=== PATIENT | female | born 1940 | race Caucasian/White ===

== ENCOUNTER 2021-05-05 15:22 | Emergency (ER) | payer MEDICARE, OTHER ==
[~2021-05-05] VITALS: Ht 167.6 cm; Wt 85.3 kg
--- NOTE | 2021-05-05 15:40 | NUR ---
To ER bed 10, , from [facility], had near syncopal episode, bs 121, BP 110/53, denies pain or headache, aaox3, breathing even and non labored, connected to monitor
--- NOTE | 2021-05-05 15:50 | NUR ---
DR ALFORD AT BEDSIDE
[2021-05-05] MEDS ORDERED: ONDANSETRON HCL/PF 4 MG/2 ML VIAL ONE (15:58)
[2021-05-05] MEDS ORDERED: IV NS 0.9% 1,000 ML IV ONE (16:00)
[2021-05-05] MEDS ORDERED: ONDANSETRON HCL/PF 4 MG/2 ML VIAL IV ONE (16:00)
--- NOTE | 2021-05-05 16:04 | NUR ---
ACTIVITIES AIDE AT BEDSIDE
[2021-05-05 16:27] LABS: BASOPHILS % (AUTO) 0.4 % (0.0-2.0); EOSINOPHILS % (AUTO) 0.4 % (0.0-6.0); HEMATOCRIT 37 % (33-45); HEMOGLOBIN 12.3 g/dL (11.5-14.8); LYMPHOCYTES # (AUTO) 1.8 K/uL (0.8-4.8); LYMPHOCYTES % (AUTO) 23.1 % (20.0-44.0); MEAN CORPUSCULAR HGB CONC 33 g/dl (31.0-36.0); MEAN CORPUSCULAR VOLUME 88 fL (82-100); MONOCYTES # (AUTO) 0.6 K/uL (0.1-1.30); MONOCYTES % (AUTO) 7.8 % (2.0-12.0); NEUTROPHILS # (AUTO) 5.3 K/uL (1.8-8.9); NEUTROPHILS % (AUTO) 68.3 % (43.0-81.0); PLATELET COUNT (AUTO) 258 K/uL (150-450); WHITE BLOOD COUNT (AUTO) 7.8 K/uL (4.3-11.0)
[2021-05-05 16:40] LABS: CALCIUM, SERUM 8.8 mg/dL (8.5-10.1); CARBON DIOXIDE 28 mmol/L (21-32); CHLORIDE 96 mmol/L (98-107); CREATININE 0.9 mg/dL (0.6-1.3); GLUCOSE 106 mg/dL (74-106); POTASSIUM 3.9 mmol/L (3.5-5.1); SODIUM SERUM 130 mmol/L (136-145); UREA NITROGEN, BLOOD 16 mg/dL (7-18)
[2021-05-05 16:45] LABS: ALANINE AMINOTRANSFERASE 28 U/L (12-78); ALBUMIN 3.5 g/dL (3.4-5.0); ALKALINE PHOSPHATASE 88 U/L (46-116); ASPARTATE AMINOTRANSFERASE 24 U/L (15-37); BILIRUBIN,DIRECT 0.1 mg/dL (0.0-0.2); BILIRUBIN,TOTAL 0.4 mg/dL (0.2-1.0); TOTAL PROTEIN, SERUM 7.3 g/dL (6.4-8.2)
--- NOTE | 2021-05-05 16:49 | NUR ---
COVID ANTIGEN SWAB DONE AND SENT TO LAB
--- NOTE | 2021-05-05 17:16 | NUR ---
candi moreau left contact # [phone]
--- NOTE | 2021-05-05 19:13 | NUR ---
REPORT GIVEN TO SESAR COLEMAN RN FOR GIOVANY
--- NOTE | 2021-05-05 19:14 | NUR ---
REC'D REPORT FROM FREDY EPPERSON FOR GI[facility]
--- NOTE | 2021-05-05 19:36 | NUR ---
MRSA SWAB COLLECTED AND SENT TO LAB. PATIENT'S BELONGINGS LIST DONE.
[2021-05-05] MEDS ORDERED: AMLODIPINE BESYLATE 5 MG TABLET PO ONE (22:00)
[2021-05-05] MEDS ORDERED: AMLODIPINE BESYLATE 5 MG TABLET ONE (22:05)
--- NOTE | 2021-05-05 23:09 | NUR ---
PT ACCEPTED TO [facility] BY DR MACKEY. TELE [phone]. # FOR REPORT [phone]. [facility] ETA [phone]
--- NOTE | 2021-05-05 23:24 | NUR ---
GAVE REPORT TO FREDY OSUNA FOR GIOVANY
[2021-05-06] VITALS: BP 139/88
--- NOTE | 2021-05-06 00:30 | NUR ---
GAVE REPORT TO EMS
== END 2021-05-06 00:33 | disposition short-term general hospital (02) ==
LOC: ER 15:27
DX: R55 Syncope and collapse (principal); R11.0 Nausea; R91.8 Other nonspecific abnormal finding of lung field; Z20.822 Contact with and (suspected) exposure to COVID-19; R94.31 Abnormal electrocardiogram [ECG] [EKG]; E03.9 Hypothyroidism, unspecified; I11.9 Hypertensive heart disease without heart failure
CPT/HCPCS: 36415; 71045; 80048; 80076; 83880; 84484 ×2; 85025; 85730; 87081; 87426; 93005; 96361; 96374; 99285; C9803; J2405; J7030